=== PATIENT | male | born 1970 | race Caucasian/White ===

== ENCOUNTER → 2019-03-24 | Outpatient (CLI) | payer BC ==
[2014-10-14 12:45] VITALS: BP 119/75
[~2019-03-24] MED LIST: DOCU50CA9 PO; MULT1TAB52 PO; ONDA4TAB12 PO; OXYC1TAB15 PO
--- NOTE | 2019-03-25 14:00 | KCIC ---
HAND RIGHT 3V History: Right hand pain and redness and swelling. Technique: 3 views right hand. Comparison: None. Findings: Normal alignment. No fracture. No radiographic evidence of osteomyelitis. Ulnar hand soft tissue swelling. Distal radial ulnar DJD. Mild distal interphalangeal DJD. Well-corticated ossification along the dorsal aspect of the wrist, may relate to prior trauma. Impression: 1. No acute osseous abnormality. Electronically signed by: Art Bah DO (03/25/2019 1:58 PM) [id number]
== END | disposition home or self-care (01) ==
LOC: KCIC 15:36
PROVIDERS: ATTEND Nurse Practitioner Family
DX: M19.041 Primary osteoarthritis, right hand (principal)
CPT/HCPCS: 73130

== ENCOUNTER → 2020-03-29 | Outpatient (CLI) | payer BC ==
[2014-10-14 12:45] VITALS: BP 119/75
[~2020-03-29] MED LIST changes: +MULT-445 PO; -MULT1TAB52 PO
--- NOTE | 2020-03-30 12:40 | RAD ---
US HEAD/NECK SOFT TISSUE History: Reason: Palpable Nodule RT Anterior Neck / Spl. Instructions: Pt States Lump has been there all his life / History: Comparison: None. Technique: Grayscale and color Doppler ultrasound evaluation of the superficial lesion in the right n reggie. Findings: According to the area of the patient's palpable concern, there is a lenticular shaped subcutaneous ma ss measuring 2.1 x 1.5 x 0.4 cm. This demonstrates similar complexity to adjacent subcutaneous fat. N o abnormal color Doppler flow is identified. No aggressive features. Impression: 1. Lenticular shaped subcutaneous mass measuring 2.1 x 1.5 x 0.4 cm in the area of patient's right n reggie palpable concern is nonspecific but lipoma is favored etiology. Electronically signed by: Shaheen Smith MD (03/30/2020 12:38 PM) [facility]
== END ==
LOC: US 15:23
PROVIDERS: ATTEND Nurse Practitioner Family
DX: R22.1 Localized swelling, mass and lump, neck (principal)
CPT/HCPCS: 76536